=== PATIENT | female | born 1955 | race Caucasian/White ===

== ENCOUNTER 2018-05-03 11:18 | Emergency (ER) | payer OTHER ==
[2018-05-03] MEDS ORDERED: NORMAL SALINE 1000 ML 1,000 ML IV ONE (12:03)
[2018-05-03] MEDS ORDERED: ONDANSETRON HCL INJ/PF 4 MG/2 ML SDV IV ONE (12:03)
[2018-05-03] MEDS ORDERED: ONDANSETRON 4 MG TAB.RAPDIS PO ONE (12:03)
--- NOTE | 2018-05-03 12:04 | ER Document Report ---
ED Medical Screen (RME) - General Mode of Arrival: Ambulatory Information source: Patient TRAVEL OUTSIDE OF THE [place] IN LAST 30 DAYS: No <NENA FONG - Last Filed: 05/03/18 12:14> <KINGSTON SWANSON - Last Filed: 05/03/18 12:51> - General Chief Complaint: Nausea/Vomiting Stated Complaint: VOMITING Time Seen by Provider: 05/03/18 11:58 Notes: Patient is a 62 year old female with anxiety presents to the emergency department complaining of nausea and vomiting onset last night. Patient states her vomiting has been constant since last night further stating she has been unable to keep any food or fluid down. Patient denies any sick contacts, abdominal pain, hematemesis, diarrhea or fevers. GENERAL: Alert, actively vomiting at bedside. No acute distress. HEAD: Normocephalic, Atraumatic. NECK: Full range of motion. Supple. Trachea midline. LUNGS: Clear to auscultation bilaterally, no wheezes, rales, or rhonchi. No respiratory distress. HEART: Regular rate and rhythm. No murmurs, gallops, or rubs. EXTREMITIES: Moves all four extremities spontaneously. PSYCH: Normal affect, normal mood. I have greeted and performed a rapid initial assessment of this patient. A comprehensive ED assessment and evaluation of the patient, analysis of test results and completion of the medical decision making process will be conducted by additional ED providers. (NENA FONG) - Related Data Allergies/Adverse Reactions: No Known Allergies Allergy (Verified 05/03/18 11:19) Past Medical History - Social History Chew tobacco use (# tins/day): No Frequency of alcohol use: None Drug Abuse: None Renal/ Medical History: Denies: Hx Peritoneal Dialysis Psychiatric Medical History: Denies: Hx Depression - anxiety <NENA FONG - Last Filed: 05/03/18 12:14> - Vital signs Vitals: Pulse Resp BP Pulse Ox 83 22 H 134/116 H 99 05/03/18 11:24 05/03/18 11:24 05/03/18 11:24 05/03/18 11:24 Course - Laboratory Result Diagrams: 05/03/18 12:15 05/03/18 12:15 <KINGSTON SWANSON - Last Filed: 05/03/18 12:51> - Vital Signs Vital signs: Temp Pulse Resp BP Pulse Ox 83 22 H 134/116 H 99 05/03/18 11:24 05/03/18 11:24 05/03/18 11:24 05/03/18 11:24 - Laboratory Laboratory results interpreted by me: 05/03/18 05/03/18 12:15 12:15 WBC 10.6 H RDW 14.7 H Seg Neutrophils % 79.1 H Absolute Neutrophils 8.4 H Glucose 134 H Calcium 10.4 H Total Protein 8.4 H
[2018-05-03 12:27] LABS: ABSOLUTE LYMPHOCYTES (AUTO) 1.7 10^3/uL (0.5-4.7); ABSOLUTE MONOCYTES (AUTO) 0.5 10^3/uL (0.1-1.4); ABSOLUTE NEUT (AUTO) 8.4 10^3/uL (1.7-8.2); BASOPHILS % (AUTO) 0.3 % (0-2); EOSINOPHILS % (AUTO) 0.1 % (0-6); HEMATOCRIT 41.5 % (36.0-47.0); HEMOGLOBIN 13.7 g/dL (12.0-15.5); LYMPHOCYTES % (AUTO) 16.1 % (13-45); MEAN CORPUSCULAR HEMOGLOBIN 27.4 pg (27.0-33.4); MEAN CORPUSCULAR VOLUME 83 fl (80-97); MONOCYTES % (AUTO) 4.4 % (3-13); PLATELET COUNT 377 10^3/uL (150-450); RED BLOOD COUNT 5.01 10^6/uL (3.72-5.28); RED CELL DISTRIBUTION WIDTH 14.7 % (11.5-14.0); SEGMENTED NEUTROPHILS % (AUTO) 79.1 % (42-78); TOTAL CELLS COUNTED % (AUTO) 100 %; WHITE BLOOD COUNT 10.6 10^3/uL (4.0-10.5)
[2018-05-03] MEDS ORDERED: PROMETHAZINE HCL INJ 25 MG/1 ML VIAL IV ONE (12:33)
--- NOTE | 2018-05-03 12:35 | ER Document Report ---
ED General - General Chief Complaint: Nausea/Vomiting Stated Complaint: VOMITING Time Seen by Provider: 05/03/18 11:58 Mode of Arrival: Ambulatory TRAVEL OUTSIDE OF THE [place] IN LAST 30 DAYS: No - HPI Notes: 62-year-old female presents with vomiting. Patient describes onset yesterday around 7 PM of vomiting, food and fluid, no coffee grounds or hematemesis. Multiple times since then. Denies any abimael abdominal pain. No diarrhea, no bloody stool. No recent travel, no recent antibiotic use. No other sick contacts. Gradual onset, nonradiating. No other modifying factors, no other associated symptoms, no other provocative or palliative factors. - Related Data Allergies/Adverse Reactions: No Known Allergies Allergy (Verified 05/03/18 11:19) Past Medical History - General Information source: Patient - Social History Smoking Status: Never Smoker Chew tobacco use (# tins/day): No Frequency of alcohol use: None Drug Abuse: None Family History: Reviewed & Not Pertinent Patient has suicidal ideation: No Patient has homicidal ideation: No - Medical History Medical History: Negative Renal/ Medical History: Denies: Hx Peritoneal Dialysis Psychiatric Medical History: Denies: Hx Depression - anxiety Review of Systems - Review of Systems Notes: Review of systems as in the history of present illness, otherwise negative x 10 systems. Physical Exam - Vital signs Vitals: Pulse Resp BP Pulse Ox 83 22 H 134/116 H 99 05/03/18 11:24 05/03/18 11:24 05/03/18 11:24 05/03/18 11:24 - Notes Notes: General: Well developed . HEENT: Normocephalic, atraumatic. Pupils equal round reactive to light. No JVD. Mucosa dry Chest: No trauma. Respiratory: Good air exchange, normal excursion. Cardiac: Regular rhythm. No murmurs or gallops. Abdomen: Soft, benign. Nondistended. Nontender. Back: No asymmetry or gross abnormality. Motor: Grossly normal power and tone. Neurologic: Alert, nonfocal. Cranial nerves II-12 are intact. Sensation intact. Vascular: Well perfused. Normal peripheral pulses. Skin: No petechiae or purpura. Course - Re-evaluation Re-evalutation: 05/03/18 12:35 62-year-old female the after mentioned symptoms, seen by the physician in triage , labs and medications are initially ordered. Examination is benign, strongly suspect food poisoning or viral illness. Less likely obstruction. I think this is less likely to be a toxic or metabolic abnormality. Plan proceed with basic labs, serial examination, symptomatic therapy and hydration, reassess. 05/03/18 15:03 Nebs reviewed, grossly unremarkable. Normal chemistries, normal renal function. Patient has had marked improvement with antiemetics, feeling much better, serial abdominal examination shows a benign abdomen. Discharged home to follow- up as discussed, prescription for antiemetics is given. - Vital Signs Vital signs: Temp Pulse Resp BP Pulse Ox 97.8 F 84 18 130/70 H 99 05/03/18 14:31 05/03/18 14:31 05/03/18 14:31 05/03/18 14:31 05/03/18 14:31 - Laboratory Result Diagrams: 05/03/18 12:15 05/03/18 12:15 Laboratory results interpreted by me: 05/03/18 05/03/18 12:15 12:15 WBC 10.6 H RDW 14.7 H Seg Neutrophils % 79.1 H Absolute Neutrophils 8.4 H Glucose 134 H Calcium 10.4 H Total Protein 8.4 H Discharge - Discharge Clinical Impression: Vomiting Qualifiers: Vomiting type: unspecified Vomiting Intractability: non-intractable Nausea presence: with nausea Qualified Code(s): R11.2 - Nausea with vomiting, unspecified Condition: Good Disposition: HOME, SELF-CARE Instructions: Antinausea Medication ([facility]), Vomiting ([facility]) Prescriptions: Promethazine HCl [Phenergan 25 mg Tablet] 1 - 2 tab PO Q6H PRN #15 tablet PRN Reason: Referrals: [facility],NO [Primary Care Provider] - Follow up as needed
[2018-05-03 12:42] LABS: ALANINE AMINOTRANSFERASE 27 U/L (9-52); ALBUMIN 4.9 g/dL (3.5-5.0); ALKALINE PHOSPHATASE 81 U/L (38-126); ANION GAP 17 (5-19); ASPARTATE AMINO TRANSFERASE 30 U/L (14-36); BILIRUBIN,DIRECT 0.2 mg/dL (0.0-0.4); BILIRUBIN,TOTAL 0.5 mg/dL (0.2-1.3); BLOOD UREA NITROGEN 14 mg/dL (7-20); CALCIUM 10.4 mg/dL (8.4-10.2); CARBON DIOXIDE 25 mmol/L (22-30); CHLORIDE 102 mmol/L (98-107); GLUCOSE 134 mg/dL (75-110); LIPASE 34.6 U/L (23-300); POTASSIUM 4.1 mmol/L (3.6-5.0); SODIUM 143.5 mmol/L (137-145); TOTAL PROTEIN 8.4 g/dL (6.3-8.2)
[2018-05-03 14:36] VITALS: BP 130/70
--- NOTE | 2018-05-03 23:48 | EKG REPORT ---
SEVERITY:- ABNORMAL ECG - SINUS RHYTHM PROLONGED QT INTERVAL : Confirmed by: Abdiaziz Sexton 03-May-2018 23:47:23
== END 2018-05-03 14:36 | disposition home or self-care (01) ==
LOC: ER 11:18
DX: R11.2 Nausea with vomiting, unspecified (principal)
CPT/HCPCS: 93005; 99284; 96361; 96374; 96375; 36415; 83690; 85025; 80053; 93010; S0119; J2550; J2405; J7030